=== PATIENT | male | born 1950 | race Caucasian/White ===

== ENCOUNTER 2016-04-15 11:14 | Outpatient (CLI) | END 2016-04-15 11:15 | disposition home or self-care (01) ==

== ENCOUNTER 2016-04-23 08:25 | Outpatient (CLI) | payer OTHER, MEDICARE | END 2016-04-23 08:26 | disposition home or self-care (01) | DX: R16.0 Hepatomegaly, not elsewhere classified (principal) ==

== ENCOUNTER 2016-04-23 09:20 | Outpatient (CLI) | payer OTHER, MEDICARE | END 2016-04-23 09:21 | disposition home or self-care (01) | DX: R01.1 Cardiac murmur, unspecified (principal); I51.7 Cardiomegaly; R16.0 Hepatomegaly, not elsewhere classified ==

== ENCOUNTER 2016-05-20 10:32 | Outpatient (CLI) | payer OTHER, MEDICARE | END 2016-05-20 10:33 | disposition home or self-care (01) | DX: G47.33 Obstructive sleep apnea (adult) (pediatric) (principal) ==

== ENCOUNTER 2016-06-19 14:17 | Outpatient (CLI) | payer OTHER, MEDICARE | END 2016-06-19 14:18 | disposition home or self-care (01) | DX: M48.06 Spinal stenosis, lumbar region (principal); M47.816 Spondylosis without myelopathy or radiculopathy, lumbar region ==

== ENCOUNTER 2016-07-08 14:29 | Outpatient (CLI) | payer OTHER, MEDICARE | END 2016-07-08 14:30 | disposition home or self-care (01) | DX: G47.33 Obstructive sleep apnea (adult) (pediatric) (principal) ==

== ENCOUNTER 2016-09-01 14:54 | Outpatient (CLI) | payer OTHER, MEDICARE | END 2016-09-01 14:55 | disposition home or self-care (01) | LOC: SC 14:54 | PROVIDERS: ATTEND Internal Medicine Pulmonary Disease | DX: G47.33 Obstructive sleep apnea (adult) (pediatric) (principal) | CPT/HCPCS: 99212; 99213 ==

== ENCOUNTER 2016-09-26 15:24 | Outpatient (CLI) | payer OTHER, MEDICARE ==
--- NOTE | 2016-09-26 18:04 | XRAY Report ---
EXAM: CHEST RADIOGRAPHY EXAM DATE: 09/26/2016 03:38 PM. CLINICAL HISTORY: COUGH. COMPARISON: None. TECHNIQUE: 2 views. FINDINGS: Lungs/Pleura: Hyperexpanded compatible with COPD. Mild interstitial prominence. No localized infiltra te, consolidation, effusion, or pneumothorax. Mediastinum: Mild cardiomegaly with diffuse vascular fullness. Other: Degenerative changes. IMPRESSION: Cardiovascular fullness in a patient with underlying hyperexpansion. [facility] Referring Provider Line: [phone] SITE ID: [id number]
== END 2016-09-26 15:25 | disposition home or self-care (01) ==
LOC: DI.N 15:24
PROVIDERS: ATTEND Internal Medicine
DX: R05 Cough (principal)
CPT/HCPCS: 71020

== ENCOUNTER 2017-04-03 16:15 | Outpatient (CLI) | payer OTHER, MEDICARE ==
--- NOTE | 2017-04-03 17:43 | XRAY Report ---
EXAM: LEFT KNEE RADIOGRAPHY EXAM DATE: 04/03/2017 04:34 PM. CLINICAL HISTORY: OSTEOARTHRITIS L KNEE. COMPARISON: None. TECHNIQUE: 3 views. FINDINGS: Bones: Normal. No fractures or bone lesions. Joints: Normal. No effusion. No subluxations. Soft Tissues: Mild enthesopathy at the insertion of the quadriceps tendon into the patella. IMPRESSION: 1. No fracture or joint effusion. 2. No significant degenerative changes. [facility] Referring Provider Line: [phone] SITE ID: [id number]
== END 2017-04-03 16:16 | disposition home or self-care (01) ==
LOC: DI 16:15
PROVIDERS: ATTEND Family Medicine
DX: M17.12 Unilateral primary osteoarthritis, left knee (principal)

== ENCOUNTER 2017-06-02 18:56 | Outpatient (CLI) | payer OTHER, MEDICARE ==
--- NOTE | 2017-06-03 01:24 | Ultrasound Report ---
EXAM: LEFT LOWER EXTREMITY VENOUS ULTRASOUND EXAM DATE: 06/02/2017 07:39 PM. CLINICAL HISTORY: Lower extremity edema. COMPARISON: None. TECHNIQUE: Real-time sonographic vascular imaging was performed by the operations intelligence through the lower extremity utilizing both color-flow and Doppler spectral analysis. Multiple b2b outside sales representative static evangelina ges were saved for review. FINDINGS: Common Femoral Vein (CFV): Normal. CFV-GSV Junction: Normal. Profunda Femoral Vein (PFV): Normal. Femoral Vein (FV) Prox: Normal. Femoral Vein (FV) Mid: Normal. Femoral Vein (FV) Dist: Normal. Popliteal Vein: Normal. Posterior Tibial Veins: Normal. Peroneal Veins: Not well seen. Contralateral Side CFV: Normal. Other: In the area of palpable finding in the posterior medial left knee, there is a fluid collection measuring 2.1 x 1.5 x 2.4 cm. IMPRESSION: 1. 2.1 x 1.5 x 2.4 cm popliteal fossa cyst in the area of pain. 2. No evidence for deep venous thrombosis. [facility] Referring Provider Line: [phone] SITE ID: [id number]
== END 2017-06-02 18:57 | disposition home or self-care (01) ==
LOC: DI 18:56
PROVIDERS: ATTEND Internal Medicine
DX: M71.22 Synovial cyst of popliteal space [Baker], left knee (principal)

== ENCOUNTER 2017-09-14 15:12 | Outpatient (CLI) | payer OTHER, MEDICARE | END 2017-09-14 15:13 | disposition home or self-care (01) | LOC: SC 15:12 | PROVIDERS: ATTEND Internal Medicine Pulmonary Disease | DX: G47.33 Obstructive sleep apnea (adult) (pediatric) (principal) | CPT/HCPCS: 99212; 99213 ==

== ENCOUNTER 2017-11-02 06:17 | Day surgery (SDC) | payer OTHER, MEDICARE ==
[2017-11-02] MEDS ORDERED: LACTATED RINGERS 1,000 ML IV ONE (07:27)
[2017-11-02] MEDS ORDERED: MIDAZOLAM 2 MG/2 ML VIAL IVP ONE (07:29)
[2017-11-02] MEDS ORDERED: fentaNYL 250 MCG/5 ML VIAL IVP ONE (07:29)
[2017-11-02 08:37] VITALS: BP 128/72
== END 2017-11-02 06:18 | disposition home or self-care (01) ==
LOC: SDS 06:17
PROVIDERS: ATTEND Surgery
PROC: 0DJD8ZZ Inspection of Lower Intestinal Tract, Via Natural or Artificial Opening Endoscopic (ICD-10-PCS; principal; 2017-11-02 07:30)
DX: Z12.11 Encounter for screening for malignant neoplasm of colon (principal); K57.30 Diverticulosis of large intestine without perforation or abscess without bleeding; K64.8 Other hemorrhoids; Z86.010 Personal history of colon polyps; E11.9 Type 2 diabetes mellitus without complications; G47.30 Sleep apnea, unspecified; I10 Essential (primary) hypertension
CPT/HCPCS: 45378; J3010; J7120

== ENCOUNTER 2017-11-18 14:14 | Outpatient (CLI) | payer OTHER, MEDICARE ==
--- NOTE | 2017-11-19 08:01 | Ultrasound Report ---
Procedure Date: 11/18/2017 Accession Number: [id number] / [id number] Procedure: US - Duplex Ext Veins Bilateral CPT Code: FULL RESULT: EXAM: BILATERAL LOWER EXTREMITY VENOUS ULTRASOUND EXAM DATE: 11/18/2017 03:29 PM. CLINICAL HISTORY: HYPERTENSION/EDEMA. COMPARISON: 06/02/2017. TECHNIQUE: Real-time sonographic vascular imaging was performed by the test department helper through the lower extremities utilizing both color-flow and Doppler spectral analysis. Multiple vendor representatives static images were saved for review. FINDINGS: Right: Common Femoral Vein (CFV): Normal. CFV-GSV Junction: Normal. Profunda Femoral Vein (PFV): Normal. Femoral Vein (FV) Prox: Normal. Femoral Vein (FV) Mid: Normal. Femoral Vein (FV) Dist: Normal. Popliteal Vein: Normal. Posterior Tibial Veins: Normal. Peroneal Veins: Normal. Left: Common Femoral Vein (CFV): Normal. CFV-GSV Junction: Normal. Profunda Femoral Vein (PFV): Normal. Femoral Vein (FV) Prox: Normal. Femoral Vein (FV) Mid: Normal. Femoral Vein (FV) Dist: Normal. Popliteal Vein: Normal. Posterior Tibial Veins: Normal. Peroneal Veins: Normal. Other: Left popliteal cyst 3.3 x 2.4 x 8.3 IMPRESSION: 1. No evidence for deep venous thrombosis bilaterally. 2. Left popliteal cyst again visualized [facility]
== END 2017-11-18 14:15 | disposition home or self-care (01) ==
LOC: DI 14:14
PROVIDERS: ATTEND Internal Medicine
DX: I10 Essential (primary) hypertension (principal); R60.9 Edema, unspecified; M71.22 Synovial cyst of popliteal space [Baker], left knee
CPT/HCPCS: 93970

== ENCOUNTER 2018-12-06 07:11 | Outpatient (CLI) | payer OTHER, MEDICARE ==
--- NOTE | 2018-12-06 09:20 | MRI Report ---
Reason: PAIN IN LEFT ANKLE AND JOINTS OF LEFT FOOT, PAIN I Procedure Date: 12/06/2018 Accession Number: [id number] / [id number] Procedure: MRI - Knee LT W/O CPT Code: FULL RESULT: EXAM: LEFT KNEE MRI WITHOUT CONTRAST EXAM DATE: 12/06/2018 08:00 AM. CLINICAL HISTORY: Chronic left knee pain. History of prior surgery. COMPARISON: KNEE 3 VIEW LT 04/03/2017 4:18 PM. TECHNIQUE: Multiplanar, multisequence T1-weighted and fluid-sensitive sequences of the knee without contrast. Other: None. FINDINGS: Ligaments: The anterior cruciate, posterior cruciate, and lateral collateral ligament are normal. The proximal fibers of the medial collateral ligament are slightly thickened and increased in signal which probably reflects sequela of remote partial tear. No signs of current MCL tear. Patellofemoral compartment: Minimal diffuse superficial partial-thickness retropatellar chondromalacia. Femoral trochlear cartilage is preserved. No significant patellofemoral osteoarthritis. Patellofemoral alignment is anatomic. The distal quadriceps and patellar tendons are normal. The medial and lateral patellofemoral retinacula are normal. Medial compartment: Ill-defined diffuse increased signal in the medial portion of the posterior horn of the medial meniscus consistent with intrasubstance degeneration. The midportion of the peripheral body of the medial meniscus is also focally diminutive. Given the patient's history of prior knee surgery this is most likely sequela of partial meniscectomy. However, if no meniscal surgery was performed in the peripheral body of the medial meniscus, this is consistent with tear. The remainder of the medial meniscus is intact. Partial-thickness chondromalacia of the medial margin of the medial tibial plateau. Additionally, there is focal subchondral marrow edema underlying the central weightbearing surface of the medial femoral condyle surrounding a small region of subchondral low T1/T2 signal consistent with sclerosis. Though this could be degenerative, this is suspicious for early spontaneous osteonecrosis of the knee/insufficiency fracture. Medial tibial plateau cartilage is preserved. Tiny medial compartment osteophytes indicate osteoarthritis. Lateral compartment: The lateral meniscus is intact. Lateral compartment cartilage is preserved. No lateral compartment osteoarthritis. Soft tissues: There is a tiny knee effusion. No popliteal cyst. IMPRESSION: 1. Focally diminutive contour of the midportion of the peripheral body of the medial meniscus. Given the patient's history of prior knee surgery there is a high likelihood this is reflective of partial meniscectomy. However, if no medial meniscal surgery was performed in this location, this is consistent with tear. Further generalized increased signal in the posterior horn of the medial meniscus is consistent with intrasubstance degeneration. 2. Focal subchondral marrow edema in the central weightbearing surface of the medial femoral condyle surrounding a small lentiform focus of low T1/T2 signal, suspicious for early spontaneous osteonecrosis of the knee/insufficiency fracture. Degenerative marrow edema is possible but less likely. 3. Mild medial compartment chondromalacia and osteoarthritis. 4. Very mild chondromalacia patella without significant patellofemoral osteoarthritis. 5. Normal lateral compartment. 6. Evidence of old healed proximal MCL sprain. [facility]
--- NOTE | 2018-12-06 09:29 | MRI Report ---
Reason: PAIN IN LEFT ANKLE AND JOINTS OF LEFT FOOT, PAIN I Procedure Date: 12/06/2018 Accession Number: [id number] / [id number] Procedure: MRI - Ankle LT W/O CPT Code: FULL RESULT: EXAM: LEFT ANKLE/HINDFOOT MRI WITHOUT CONTRAST EXAM DATE: 12/06/2018 08:32 AM. CLINICAL HISTORY: Chronic left ankle pain. COMPARISON: ANKLE LT 09/15/2006 6:55 PM. TECHNIQUE: Multiplanar, multisequence T1-weighted and fluid-sensitive sequences of the ankle/hindfoot without contrast. Other: None. FINDINGS: Bones: Very mild tibiotalar osteoarthritis with small opposing osteophytes along the anterior margin of the tibiotalar joint space. Minimal subchondral marrow edema in the lateral corner of the talar dome is likely degenerative related to overlying chondromalacia which will be discussed below. Overlying cortex is intact and no herbert osteochondral defect is present. Osseous structures elsewhere are unremarkable. Articular Cartilage: Small region of high-grade chondromalacia of the lateral corner of the talar dome measuring approximately 3 x 4 mm. Tibiotalar cartilage elsewhere is preserved. Ligaments: Evidence of old partial tear of the anterior talofibular ligament and probably also the calcaneofibular ligament. Neither of these ligaments appears completely disrupted. The remaining lateral ankle ligaments are normal. Corticated ossicle in the substance of the deep deltoid likely reflect sequela of old sprain. No signs of current deltoid tear. The superomedial portion of the spring ligament is thickened and indistinct consistent with sequela of prior partial tear. The plantar components of the spring ligament are intact. Anterior Tendons: The tibialis anterior, extensor hallucis longus, and extensor digitorum longus tendons are unremarkable. Medial Tendons: The tibialis posterior, flexor digitorum longus, and flexor hallucis longus tendons are unremarkable. Lateral Tendons: The peroneus brevis and longus are unremarkable. Achilles Tendon: The Achilles tendon is unremarkable. Musculature: No edema or fatty atrophy. Other: No effusions. The contents of the sinus tarsi and tarsal tunnel are unremarkable. Mild fusiform thickening of the central band of the plantar aponeurosis slightly distal to the calcaneal origin, probably sequela of old plantar fasciitis or possibly partial tear. This is less focal than would be typical for a plantar fibroma and this is less likely. There is further mild thickening and increased signal in the lateral band of the plantar aponeurosis at the fifth metatarsal base insertion compatible with tendinosis or sequela of old partial tear. Mild subcutaneous edema is present about the ankle and foot. IMPRESSION: 1. 3 x 4 mm focus of high-grade chondromalacia of the lateral corner of the talar dome with mild subjacent degenerative marrow edema but intact intervening cortex and no herbert osteochondral defect. 2. Trace tibiotalar osteoarthritis. 3. Evidence of old partial tears of the anterior talofibular, calcaneofibular, deep deltoid, and superomedial spring ligaments. 4. Slight fusiform thickening of the central band of the plantar aponeurosis slightly distal to the calcaneal origin and also of the distal lateral band of the aponeurosis at its fifth metatarsal base insertion may reflect sequela of partial tears or plantar fasciitis. This appears quiescent. [facility]
== END 2018-12-06 07:12 | disposition home or self-care (01) ==
LOC: DI 07:11
PROVIDERS: ATTEND Internal Medicine
DX: M94.272 Chondromalacia, left ankle and joints of left foot (principal); M19.072 Primary osteoarthritis, left ankle and foot; R60.0 Localized edema; M94.262 Chondromalacia, left knee

== ENCOUNTER 2020-03-13 17:36 | Outpatient (CLI) | payer OTHER, MEDICARE ==
--- NOTE | 2020-03-13 20:04 | XRAY Report ---
PROCEDURE: Tib/Fib RT INDICATIONS: ARTHRALGIA RIGHT ANKLE TECHNIQUE: 2 views of the tibia and fibula were acquired. COMPARISON: MRI of ankle dated 12/06/2018. FINDINGS: Bones: No acute fractures or dislocations. Old healed injury involving tip of lateral malleolus is seen with well-corticated fragment. Mild osteoarthritic changes in right knee and ankle joints are se en. No suspicious bony lesions. Soft tissues: No suspicious soft tissue calcifications or masses. IMPRESSION: Old healed injury involving tip of lateral malleolus. No acute right lower leg fracture or dislocatio n. Right ankle and knee joint osteoarthritis. Reviewed by: Gary Larsen MD on 03/13/2020 8:03 PM PST Approved by: Gary Larsen MD on 03/13/2020 8:03 PM PST Station ID: [id number]
--- NOTE | 2020-03-13 20:05 | XRAY Report ---
PROCEDURE: Ankle 3 View RT INDICATIONS: ARTHRALGIA RIGHT ANKLE TECHNIQUE: 3 views of the ankle were acquired. COMPARISON: MRI of ankle dated 12/06/2018 FINDINGS: Bones: Old healed injury involving tip of lateral malleolus is seen. Mild ankle joint osteoarthritic changes are noted. No acute ankle fracture or dislocation. Slight widening of lateral ankle mortise i s seen. No suspicious bony lesions. Soft tissues: There is lateral ankle soft tissue swelling. No tibiotalar joint effusion. Achilles t endon appears normal. IMPRESSION: Old healed lateral malleolus injury. No acute ankle fracture or dislocation. Lateral ank le soft tissue swelling and widening of lateral malleolus concerning for low-grade distal syndesmotic injury. Reviewed by: Gary Larsen MD on 03/13/2020 8:04 PM PST Approved by: Gary Larsen MD on 03/13/2020 8:04 PM PST Station ID: [id number]
== END 2020-03-13 17:37 | disposition home or self-care (01) ==
LOC: DI 17:36
PROVIDERS: ATTEND Internal Medicine
DX: M19.071 Primary osteoarthritis, right ankle and foot (principal); M25.471 Effusion, right ankle

== ENCOUNTER 2020-05-21 17:28 | Outpatient (CLI) | payer OTHER, MEDICARE ==
--- NOTE | 2020-05-22 12:46 | XRAY Report ---
PROCEDURE: Hand 3 View BILAT INDICATIONS: OSTEOARTHRITIS L R HAND L KNEE, PAIN IN R KNEE TECHNIQUE: 3 views of the right and left hand(s) acquired. COMPARISON: None FINDINGS: Bones: No fractures or dislocations. No suspicious bony lesions mild osteoarthritic degenerative ch anges noted in the left first CMC joint. Moderate osteoarthritic degenerative changes noted in the le ft second, third and fifth DIP joints, as well as the right second, fourth and fifth DIP joints. No o sseous erosive changes. Soft tissues: No suspicious soft tissue calcifications. IMPRESSION: 1. Osteoarthritis as described above. 2. No acute osseous lesion. If there persistent symptoms or continued clinical concern for pathology , then advanced imaging (CT, MR, bone scan) should be considered for further evaluation. Reviewed by: Marla Sims MD, PhD on 05/22/2020 12:45 PM PST Approved by: Marla Sims MD, PhD on 05/22/2020 12:45 PM [facility] Station ID: [id number]
--- NOTE | 2020-05-22 12:52 | XRAY Report ---
PROCEDURE: Knee 3 View BILAT INDICATIONS: OSTEOARTHRITIS L R HAND L KNEE, PAIN IN R KNEE TECHNIQUE: 3 views of the right and left knee(s) were acquired. COMPARISON: None. FINDINGS: Bones: No fractures or dislocations. No suspicious bony lesions. Moderate bilateral knee medial and patellofemoral compartment osteoarthritis. Mild bilateral knee lateral compartment osteoarthritis. Soft tissues: Trace bilateral joint effusions. No suspicious soft tissue calcifications. IMPRESSION: 1. Moderate bilateral knee medial and patellofemoral compartment as well as mild lateral compartment osteoarthritis. 2. Trace bilateral nonspecific joint effusions. Reviewed by: Marla Sims MD, PhD on 05/22/2020 12:51 PM PST Approved by: Marla Sims MD, PhD on 05/22/2020 12:51 PM PST Station ID: [id number]
== END 2020-05-21 17:29 | disposition home or self-care (01) ==
LOC: DI.N 17:28
PROVIDERS: ATTEND Internal Medicine
DX: M19.041 Primary osteoarthritis, right hand (principal); M18.12 Unilateral primary osteoarthritis of first carpometacarpal joint, left hand; M17.0 Bilateral primary osteoarthritis of knee; M25.462 Effusion, left knee; M25.461 Effusion, right knee

== ENCOUNTER 2020-06-01 12:39 | Outpatient (CLI) | payer OTHER, MEDICARE | END 2020-06-01 12:40 | disposition home or self-care (01) | LOC: COV 12:39 | PROVIDERS: ATTEND Family Medicine | DX: Z20.822 Contact with and (suspected) exposure to COVID-19 (principal) ==

== ENCOUNTER 2020-12-12 19:03 | Outpatient (CLI) | payer OTHER, MEDICARE ==
--- NOTE | 2020-12-13 10:25 | Ultrasound Report ---
PROCEDURE: Duplex Ext Veins Left INDICATIONS: L FOOT PAIN TECHNIQUE: Real-time imaging, as well as color and pulse Doppler interrogation, were performed of the lower extr emity deep veins from the inguinal ligament to the popliteal fossa. COMPARISON: None. FINDINGS: The deep veins are normally compressible, and free of intraluminal thrombus. Color and pu lse Doppler demonstrate normal phasic intraluminal flow. There is normal augmentation response to di stal compression maneuver. IMPRESSION: No deep venous thrombosis. Reviewed by: Rina Gonzalez MD on 12/13/2020 10:24 AM PDT Approved by: Rina Gonzalez MD on 12/13/2020 10:24 AM PDT Station ID: [id number]
== END 2020-12-12 19:04 | disposition home or self-care (01) ==
LOC: DI 19:03
PROVIDERS: ATTEND Internal Medicine
DX: M25.572 Pain in left ankle and joints of left foot (principal)

== ENCOUNTER 2020-12-12 22:12 | Emergency (ER) | payer OTHER, MEDICARE ==
--- NOTE | 2020-12-12 23:46 | ED Physician Documentation ---
PD HPI LOWER EXT INJURY - Stated complaint Stated Complaint: LT FOOT/ANKLE PX; DIABETES - Chief complaint Chief Complaint: Ext Problem - History obtained from History obtained from: Patient - Additional information Additional information: PT comes to the ED for CC of "I need a L ankle Xray." Pt states he has ongoing swelling in his lower extremities, worse on the L, and that his PCP ordered US and an x-ray, prior to sending him to PT. US was done today, but the order for x-ray did not come through. Pt was advised by 's office to come to ED, as his PT is supposed to start soon. Pt denies recent injury. He thinks he has been on his feet too much lately. He states his doctor told him he might have a stress fracture causing the pain in his ankle--hence the x-ray. Review of Systems Ten Systems: 10 systems reviewed and negative Constitutional: reports: Reviewed and negative Eyes: reports: Reviewed and negative Ears: reports: Reviewed and negative Nose: reports: Reviewed and negative Throat: reports: Reviewed and negative Cardiac: reports: Reviewed and negative Respiratory: reports: Reviewed and negative GI: reports: Reviewed and negative : reports: Reviewed and negative Skin: reports: Reviewed and negative Musculoskeletal: reports: Joint pain, Joint swelling Neurologic: reports: Reviewed and negative Psychiatric: reports: Reviewed and negative Endocrine: reports: Reviewed and negative Immunocompromised: reports: Reviewed and negative PD PAST MEDICAL HISTORY - Past Medical History Past Medical History: Yes Cardiovascular: Hypertension, High cholesterol, Other Respiratory: Asthma, Sleep apnea, CPAP use Endocrine/Autoimmune: Type 2 diabetes GI: GERD, Colon polyps : None HEENT: None Psych: Depression Musculoskeletal: Osteoarthritis, Scoliosis Derm: None - Past Surgical History Ortho: Rotator cuff repair, Arthroscopic surgery - Present Medications Home Medications: Ambulatory Orders Medication Instructions Recorded Confirmed Metoprolol Tartrate 50 mg PO TID 06/02/14 12/12/20 Amlodipine Besylate/Benazepril 10 mg PO DAILY 01/11/16 12/12/20 [Amlodipine-Benazepril 2.5-10] Atorvastatin Calcium [Lipitor] 40 mg PO DAILY 01/11/16 12/12/20 Ezetimibe [Zetia] 10 mg PO DAILY 01/11/16 12/12/20 Fluticasone [Flonase] 1 spray MOSES DAILY 01/11/16 12/12/20 Tamsulosin [Flomax] 0.4 mg PO DAILY 01/11/16 12/12/20 Aspirin [Adult Aspirin] 81 mg PO DAILY 11/02/17 12/12/20 Colesevelam HCl [Welchol] 625 mg PO DAILY 11/02/17 12/12/20 Fenofibric Acid (Choline) 135 mg PO DAILY 11/02/17 12/12/20 [Trilipix] Gabapentin [Neurontin] 100 mg PO ONCE 11/02/17 12/12/20 Losartan Potassium 50 mg PO BID 11/02/17 12/12/20 Montelukast [Singulair] 10 mg PO QPM 11/02/17 12/12/20 Metformin HCl [Metformin ER 500 mg PO QPM 12/12/20 12/12/20 Osmotic] - Allergies Allergies/Adverse Reactions: Allergies Allergy/AdvReac Type Severity Reaction Status Date / Time naproxen sodium * Allergy Respiratory Verified 12/12/20 22:22 [From Chelle] - Social History Does the pt smoke?: No Smoking Status: Never smoker Does the pt drink ETOH?: No Does the pt have substance abuse?: No - Immunizations Immunizations are current?: Yes - POLST Patient has POLST: No PD ED PE NORMAL - Vitals Vital signs reviewed: Yes - General General: Alert and oriented X 3, No acute distress - HEENT HEENT: Atraumatic, PERRL, EOMI, Moist mucous membranes - Neck Neck: Supple, no meningeal sign - Cardiac Cardiac: Strong equal pulses - Respiratory Respiratory: No respiratory distress - Derm Derm: Normal color, Warm and dry, No rash - Extremities Extremities: No deformity, Other (moderate, nonpitting edema bilateral ankles, worse on L.) - Neuro Neuro: Alert and oriented X 3, safety security officer 2-12 intact, No motor deficit, No sensory deficit, Normal speech - Psych Psych: Normal mood, Normal affect Results - Vitals Vitals: Vital Signs - 24 hr 12/12/20 12/12/20 22:18 23:51 Temperature 36.3 C L Heart Rate 74 68 Respiratory 18 16 Rate Blood Pressure 189/82 H 173/71 H O2 Saturation 99 97 Oxygen O2 Source Room air - Rads (name of study) L ankle XR Radiology: Final report received, EMP read indepedently, See rad report (neg fracture/dislocation/bony injury) PD MEDICAL DECISION MAKING - ED course Complexity details: reviewed results, re-evaluated patient, considered differential, d/w patient ED course: Xray was performed and negative. US had already demonstrated no DVT prior to pt's visit. Pt was advised to follow-up with his PCP for further management. Departure - Departure Disposition: 01 Home, Self Care Clinical Impression: Peripheral edema Degenerative joint disease of ankle Qualifiers: Osteoarthritis type: unspecified Laterality: left Qualified Code(s): M19.072 - Primary osteoarthritis, left ankle and foot Condition: Stable Instructions: ED Edema Legs Bilateral, ED Degenerative Joint Disease Comments: Your x-ray does not show any evidence of a fracture or other acute injury. You do have some rough bone edges, which indicate some degeneration due to chronic wear and tear, and this may be partially responsible for some of the discomfort and swelling you are experiencing. Please follow-up as planned with your primary care physician for this. Discharge Date/Time: 12/12/20 23:55
[2020-12-12 23:52] VITALS: BP 173/71
--- NOTE | 2020-12-13 08:23 | XRAY Report ---
PROCEDURE: Ankle 3 View LT INDICATIONS: L ankle pain/swelling TECHNIQUE: 3 views of the ankle were acquired. COMPARISON: None FINDINGS: Bones: No fractures or dislocations. Ankle mortise is normally aligned. No suspicious bony lesions . Large dorsal calcaneal bone spur. No osseous erosions or periosteal reaction. Mild midfoot osteoarthritis. Ossification noted adjacent to the medial malleolus likely represent acc essory ossicle. Soft tissues: Tibiotalar joint effusion noted. Achilles tendon appears normal. Soft tissue swelling i s noted and ligamentous injury cannot be excluded. IMPRESSION: No acute fracture. No acute osseous lesion. If there persistent symptoms or continued clinical concer n for pathology, then repeat plain film radiographs (7-10 days) or advanced imaging (CT, MR, bone sca n) should be considered for further evaluation. Reviewed by: Marla Sims MD, PhD on 12/13/2020 8:22 AM PDT Approved by: Marla Sims MD, PhD on 12/13/2020 8:22 AM PDT Station ID: [id number]
== END 2020-12-12 23:55 | disposition home or self-care (01) ==
LOC: ED 22:12
DX: R60.0 Localized edema (principal); M19.072 Primary osteoarthritis, left ankle and foot; M25.572 Pain in left ankle and joints of left foot
CPT/HCPCS: 99282; 99283

== ENCOUNTER 2021-01-15 07:10 | Outpatient (CLI) | payer OTHER, MEDICARE ==
--- NOTE | 2021-01-15 12:05 | CT Report ---
PROCEDURE: Sinuses INDICATIONS: ALLERGIC RHINITIS TECHNIQUE: Noncontrast 3.0 mm axial images acquired from the frontal sinuses to the mid-sella, with coronal and sagittal reformats. For radiation dose reduction, the following was used: automated exposure control , adjustment of mA and/or kV according to patient size. COMPARISON: Correlation is made with prior head CT, 01/11/2016 FINDINGS: Image quality: Excellent. Maxillary Sinuses: There is demineralization of the medial nina of the maxillary sinuses. Mild to mo derate mucosal thickening is seen on the right and there is mild mucosal thickening seen on the left. Ethmoid Air Cells: No bony remodeling or destruction. Sinuses are clear. Sphenoid Sinuses: No bony remodeling or destruction. Sinuses are clear. Frontal Sinuses: No bony remodeling or destruction. Sinuses are clear. Ostiomeatal Complexes: Ostiomeatal complexes are patent, yet they are constitutionally narrowed, wit h bilateral Mile cells. Miscellaneous: Visualized intra-orbital contents are normal. No eric bullosa. There is mild right abernathy nasal septal deviation. At least moderate degenerative change can be seen of the temporomandibular joints. IMPRESSION: Focal maxillary sinus disease. Demineralization of the medial nina of the maxillary sinuses is sugge stive of chronic sinusitis. Constitutionally narrowed ostiomeatal complexes, with bilateral Mile cells. Mild rightward nasal septal deviation. Bilateral temporomandibular joint degenerative change noted. Reviewed by: Yash Solorzano MD on 01/15/2021 11:03 AM [facility] Approved by: Yash Solorzano MD on 01/15/2021 11:03 AM [facility] Station ID: [id number]
== END 2021-01-15 07:11 | disposition home or self-care (01) ==
LOC: DI 07:10
PROVIDERS: ATTEND Internal Medicine
DX: J32.0 Chronic maxillary sinusitis (principal); J34.2 Deviated nasal septum; M19.09 Primary osteoarthritis, other specified site

== ENCOUNTER 2022-03-10 19:05 | Outpatient (CLI) | payer OTHER, MEDICARE ==
--- NOTE | 2022-03-11 15:53 | XRAY Report ---
PROCEDURE: Knee 3 View RT INDICATIONS: KNEE INJ TECHNIQUE: 3 views of the right knee(s) were acquired. COMPARISON: X-ray knees to 05/21/2020 FINDINGS: Bones: No fractures or dislocations. No suspicious bony lesions. There is moderate medial and mild patellofemoral compartment narrowing. Small periarticular osteophytes are present. No erosions. Over all appearance is stable compared to prior exam. Soft tissues: Minimal joint effusion. No suspicious soft tissue calcifications. IMPRESSION: Medial and patellofemoral arthritic change. Reviewed by: Rina Gonzalez MD on 03/11/2022 3:51 PM PST Approved by: Rina Gonzalez MD on 03/11/2022 3:51 PM PST Station ID: [id number]
== END 2022-03-10 19:06 | disposition home or self-care (01) ==
LOC: DI 19:05
PROVIDERS: ATTEND Internal Medicine
DX: M17.11 Unilateral primary osteoarthritis, right knee (principal); M25.461 Effusion, right knee

== ENCOUNTER 2022-05-29 16:31 | Outpatient (CLI) | payer OTHER, MEDICARE ==
--- NOTE | 2022-05-30 08:59 | XRAY Report ---
PROCEDURE: Thoracic Spine 2 View INDICATIONS: LOW BACK PAIN TECHNIQUE: 3 views of the thoracic spine were acquired. COMPARISON: None. FINDINGS: Bones: Rightward curvature of thoracolumbar spine with apex at T12 level. No fractures or dislocation s. Degenerative endplate changes, loss of disc height is seen throughout thoracic spine. No suspicio us bony lesions. 12 pairs of ribs are noted, and appear intact where visualized. Soft tissues: No paravertebral stripe thickening. IMPRESSION: Degenerative disc disease throughout thoracic spine. No acute compression fracture or spondylolisthes is. Dextroscoliosis as above. Reviewed by: Gary Larsen MD on 05/30/2022 8:58 AM PST Approved by: Gary Larsen MD on 05/30/2022 8:58 AM PST Station ID: [id number]
--- NOTE | 2022-05-30 09:02 | XRAY Report ---
PROCEDURE: Lumbar Spine 2 View INDICATIONS: LOW BACK PAIN, THORACIC SPINE PAIN TECHNIQUE: 2 views of the lumbar spine were acquired. COMPARISON: 06/19/2016, 11/22/2015. FINDINGS: Bones: 6 [id number] vertebrae are present. There is mild leftward curvature of lumbar spine wi th apex at at L4 level. Loss of disc height, degenerative endplate changes and bilateral facet arthr osis at L2-3 through L5-S1 levels are seen. No vertebral body compression fractures. No suspicious b verenice lesions. Soft tissues: Overlying bowel gas pattern is normal. No suspicious soft tissue calcifications. IMPRESSION: Transitional anatomy with 6 nonrib-bearing lumbar-type vertebrae. Degenerative disc dise ase throughout lumbar spine. No acute compression fracture. 5 mm retrolisthesis of L3 on L4. Reviewed by: Gary Larsen MD on 05/30/2022 9:00 AM PST Approved by: Gary Larsen MD on 05/30/2022 9:00 AM PST Station ID: [id number]
== END 2022-05-29 16:32 | disposition home or self-care (01) ==
LOC: DI 16:31
PROVIDERS: ATTEND Internal Medicine
DX: M51.36 Other intervertebral disc degeneration, lumbar region (principal); M43.16 Spondylolisthesis, lumbar region; M51.34 Other intervertebral disc degeneration, thoracic region

== ENCOUNTER 2022-07-09 08:08 | Outpatient (CLI) | payer OTHER, MEDICARE ==
--- NOTE | 2022-07-09 09:49 | Ultrasound Report ---
PROCEDURE: Abdomen Complete INDICATIONS: RUQ PAIN TECHNIQUE: Real-time scanning was performed of the abdominal and retroperitoneal organs, with image documentatio n. COMPARISON: Abdomen x-ray 04/23/2016 FINDINGS: Liver: Liver is enlarged measuring 18.6 cm with increased echogenicity. Multiple foci of decreased e chogenicity are present largest measuring 7 x 5 x 7 mm. Gallbladder: No stones. Wall thickness is normal measuring 1.4 mm. Biliary ducts: Intrahepatic bile ducts are non-dilated. Extrahepatic bile duct caliber measures 5.6 mm. Normal is 6-7 mm or less in diameter, or 10 mm or less post-cholecystectomy. Pancreas: Visualized portions of the pancreas are sonographically normal. Spleen: Spleen is normal in size and homogeneous in echotexture. Kidneys: Kidneys are normal in size and echotexture. Right kidney measures 14.4 cm long; left kidne y measures 13.1 cm long. No hydronephrosis or nephrolithiasis. No solid masses. Simple bilateral r enal cysts the largest measuring 1.6 x 1.3 x 1.4 cm on the left. Aorta: Visualized aorta is normal in caliber at less than 3 cm. Iliacs: Proximal common iliac arteries are normal in caliber at less than 2.5 cm. IVC: Intrahepatic inferior vena cava is patent. Miscellaneous: No free abdominal fluid. IMPRESSION: Hepatomegaly with steatosis. Simple hepatic and renal cysts. Reviewed by: Rina Gonzalez MD on 07/09/2022 9:47 AM PDT Approved by: Rina Gonzalez MD on 07/09/2022 9:47 AM PDT Station ID: [id number]
== END 2022-07-09 08:09 | disposition home or self-care (01) ==
LOC: DI 08:08
PROVIDERS: ATTEND Internal Medicine
DX: R16.0 Hepatomegaly, not elsewhere classified (principal); K76.0 Fatty (change of) liver, not elsewhere classified; K76.89 Other specified diseases of liver; N28.1 Cyst of kidney, acquired

== ENCOUNTER 2022-07-29 19:20 | Outpatient (CLI) | payer OTHER, MEDICARE ==
--- NOTE | 2022-07-30 10:41 | XRAY Report ---
PROCEDURE: Hip w/Pelvis 2-3V RT INDICATIONS: RIGHT HIP PAIN TECHNIQUE: AP pelvis with lateral view(s) of the right hip(s). COMPARISON: None. FINDINGS: Bones: No fractures or dislocations. No suspicious bony lesions. Doubtful narrowing of joint spac e and possible osteophytic lipping. Soft tissues: No suspicious soft tissue calcifications or masses. IMPRESSION: No acute bony abnormality. Kellgren-Donavan scale of osteoarthritis: Grade 1-2: mild osteoarthritis. Reviewed by: Prince Diamond on 07/30/2022 10:39 AM PDT Approved by: Prince Diamond on 07/30/2022 10:39 AM PDT Station ID: [id number]
== END 2022-07-29 19:21 | disposition home or self-care (01) ==
LOC: DI 19:20
PROVIDERS: ATTEND Internal Medicine
DX: M16.11 Unilateral primary osteoarthritis, right hip (principal)

== ENCOUNTER 2023-05-18 14:34 | Outpatient (CLI) | payer OTHER, MEDICARE ==
--- NOTE | 2023-05-18 22:01 | SLEEP CARE CONSULTATION ---
Information from patient questionnaire entered by Jd Hwang. I have reviewed and concur with the information entered by Jd Hwang. This document represents the service I personally performed and the decisions made by me, Milad Steinberg MD, [facility]. History of Present Illness Service Date and Time: 05/18/2023 1434 Reason for Visit: New patient Chief Complaint: reports: Excessive daytime sleepiness, Frequent awakenings at night, Other (UP DATE SUPPLIES) Date of Onset: YEARS Usual bedtime: 12-1AM Time it takes to fall asleep: 45MIN-1.5HRS Snores at night: No Observed to quit breathing while asleep: Yes Sleeps alone due to snoring: No Number of times waking at night: 2 Reasons for waking at night: reports: Bathroom Toss, Turn, or Twitch while sleeping: Yes Recalls having dreams: Yes Usually gets out of bed at: 545AM Feels refreshed in the morning: No Morning headache: No Sleepy or fatigued during the day: Yes Ever fallen asleep while driving: No Takes day naps: No Dreams during day naps: No Prior sleep studies: Yes Additional HPI information: Mr. Marcial was diagnosed to have moderate obstructive sleep apnea-hypopnea syndrome (28.8) and returns today for follow up of CPAP therapy after last seen 5 years ago. The patient purchased the ResMed AirSense 10 from [employer]. He wears a Respironics DreamWisp nasal mask. He continues to use the device nightly and all through the night. The compliance report shows that he uses the device 90 nights out of the past 90 nights, averaging 7.0 hours a night. He complains of no particular problem with the device such as soreness on the face, dry nose, epistaxis, nasal congestion or headache. He thinks that the pressure of 6 - 10 cmH2O is comfortable. On the CPAP therapy he notices improvement in his sleep quality, and that he wakes up feeling fresher in the morning and more awake/alert during the day. The average residual AHI is 1.3; and large leak, 4.3 L/min. The 90th percentile pressure is 8.9 cmH2O. His just in August of last year and left him with a new BiPAP machine. 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 Patient is and lives in . Have you smoked in the past 12 months: No Alcohol use: No Caffeine use: Yes Caffeine amount and frequency: 20OZ COONEY COKE 1 X DAILY Family History Family history of sleep disordered breathing: Yes Family Hx Sleep Apnea: Other: Snoring (SON), Sleep apnea - Treated (SON) Allergies and Home Medications Known drug allergies: Yes ( LISTED) Drug allergies reviewed: Yes Home medication list reviewed: Yes Allergy and home medication list: Allergies naproxen sodium * [From Aleve] Allergy (Verified 05/15/23 12:44) Respiratory Review of Systems Review of systems same as previous: Yes Weight gain over past 5 years: 25 Cardiovascular: reports: high blood pressure, leg or foot swelling Respiratory: reports: chronic cough Gastrointestinal: reports: difficulty swallowing Urinary: reports: frequency, urgency Neurological: reports: gait or balance problems Psychiatric: reports: anxiety Ear/Nose/Throat: reports: nasal congestion, dry mouth/throat Endocrine: reports: sluggishness Musculoskeletal: reports: joint pain, neck pain, back pain, joint swelling, muscle pain or cramping Immunologic: reports: sneezing, rash, itching Physical Exam Vital signs obtained and entered by: JD Martin MA Blood Pressure: 141/66 (LEFT ARM) Cuff size: regular Heart Rate: 57 O2 Saturation: 96 Height: 5 ft 11 in Weight: 229 lb 3.2 oz Body Mass Index: 31.9 BMI Classification: Obese Neck circumference: 17.25 Impression and Plan IMPRESSION: 1. Obstructive Sleep Apnea-Hypopnea Syndrome, moderate, with the patient continuing to do well on nasal CPAP therapy. He has excellent compliance and significant clinical benefits. The current pressure appears effective and comfortable. Overall, he is very satisfied with treatment and plans to continue with it long-term. The patient needs new supplies from [employer]. He does not want a new machine even though the ResMed AirSense 10 is now 7 years old. PLAN: 1. Leave autoCPAP at 6 - 10 cm H2O. 2. Try to lose weight 3. Prescription made for supplies through [employer]. 4. Return in one year for follow up or earlier if there is any problem with the treatment. Prescriptions: Device supplies Follow up with Sleep Care in: 1 year Visit Type: In Office Time Spent with Patient (minutes): 15 Provider Statement: I spent 100% of the Face to Face Visit with the patient with greater than 50% spent counseling the patient and coordination of care.
[2023-05-18 22:07] VITALS: BP 141/66; O2SAT 96
== END 2023-05-18 14:35 | disposition home or self-care (01) ==
LOC: SC 14:34
PROVIDERS: ATTEND Internal Medicine Pulmonary Disease
DX: G47.33 Obstructive sleep apnea (adult) (pediatric) (principal); E66.9 Obesity, unspecified; Z68.31 Body mass index [BMI] 31.0-31.9, adult
CPT/HCPCS: 99202; 99212